=== PATIENT | male | born 1995 | race Asian ===

== ENCOUNTER 2019-08-31 08:47 | Emergency (ER) | payer SELFPAY ==
[~2019-08-31] VITALS: Ht 180.3 cm; Wt 94.2 kg
--- NOTE | 2019-08-31 09:12 | NUR ---
assumed care of pt. pt here c/o chest tightness for a few days. reports that he had some vomiting a couple of days ago. denies nausea at this time. no diarrhea. denies SOB. no other c/o. no apparent distress at this time. no family at bedside. PA at bedside for kathrin
[2019-08-31] MEDS ORDERED: ACETAMINOPHEN 325 MG SUPP ONE (09:28)
[2019-08-31] MEDS ORDERED: ACETAMINOPHEN 325 MG TABLET ONE (09:29)
[2019-08-31] MEDS ORDERED: ACETAMINOPHEN 325 MG TABLET PO ONE (09:30)
[2019-08-31 10:13] VITALS: BP 123/80
--- NOTE | 2019-08-31 10:13 | NUR ---
D/C papers & instructions provided to pt. Verb understanding, ambulatory w/ steady gait to d/c desk.
--- NOTE | 2019-08-31 10:17 | NUR ---
this pt was D/C by another RN
== END 2019-08-31 10:15 | disposition home or self-care (01) ==
LOC: ED 09:27
DX: R07.89 Other chest pain (principal)
CPT/HCPCS: 71045; 93005; 99283